=== PATIENT | male | born 2000 | race Caucasian/White ===

== ENCOUNTER 2023-01-22 12:20 | Emergency (ER) | payer OTHER ==
[2023-01-22] MEDS ORDERED: predniSONE 20 MG TABLET (UD) PO ONE (12:33)
[2023-01-22 12:42] VITALS: TEMP 98.8; BMI 25.1
[2023-01-22] MEDS ORDERED: predniSONE 20 MG TABLET (UD) ONE (12:52)
[2023-01-22] MEDS ORDERED: ALBUTEROL SO4 2.5/IPRATROPIUM 0.5 INH SOL 3 ML VIAL.NEB. NEB ONE ×5 (12:52→14:15)
[2023-01-22] MEDS: ALBUTEROL SO4 2.5/IPRATROPIUM 0.5 INH SOL 3 ML VIAL.NEB. NEB SCH ×2 (12:59→13:10)
[2023-01-22 13:50] VITALS: RESP 16
[2023-01-22 14:21] VITALS: BP 130/65; PULSE 115
== END 2023-01-22 14:25 | disposition home or self-care (01) ==
LOC: FER 12:20
PROC: 3E0F7GC Introduction of Other Therapeutic Substance into Respiratory Tract, Via Natural or Artificial Opening (ICD-10-PCS; principal; 2023-01-22)
PROC: 3E0F7GC Introduction of Other Therapeutic Substance into Respiratory Tract, Via Natural or Artificial Opening (ICD-10-PCS; 2023-01-22)
PROC: 3E0F7GC Introduction of Other Therapeutic Substance into Respiratory Tract, Via Natural or Artificial Opening (ICD-10-PCS; 2023-01-22)
DX: J45.901 Unspecified asthma with (acute) exacerbation (principal)
CPT/HCPCS: 99283-25